=== PATIENT | female | born 1950 | race Caucasian/White ===

== ENCOUNTER → 2022-05-21 11:18 | Outpatient (CLI) | payer MEDICARE, OTHER, SELFPAY ==
--- NOTE | ~2022-05-21 | MM_ITS ---
EXAMINATION: MM screening toni BI w annette HISTORY: Screening mammogram TECHNIQUE: Craniocaudal and mediolateral oblique 3-D tomosynthesis images were obtained and synthetic 2-D images were generated. CAD analysis was submitted and interpreted. COMPARISON: 08/29/2018, 08/18/2016 bilateral screening mammogram examinations BREAST PARENCHYMAL COMPOSITION: There are scattered areas of fibroglandular density. FINDINGS: There is no evidence of suspicious mass, calcification, or architectural distortion to sugg est malignancy in either breast. There has been no suspicious interval change. IMPRESSION: 1. No mammographic evidence of malignancy. 2. Recommend routine screening mammography in one year. BI-RADS Category 1: Negative Reviewed, dictated and finalized at location A. ANALYST
== END ==
PROVIDERS: PCP Physician Assistant; Visit Provider Family Medicine
DX: Z12.31 Encounter for screening mammogram for malignant neoplasm of breast (principal)
CPT/HCPCS: 77063; 77067

== ENCOUNTER 2022-06-10 01:39 | Day surgery (SDC) | payer MEDICARE, OTHER, SELFPAY ==
[2022-05-29 11:02] VITALS: BMI 21.0
--- NOTE | 2022-06-09 13:54 | P.HP_ITS ---
History of Present Illness History of Present Illness Consent: Risks, benefits, and alternatives have been discussed and questions answered. Patient agrees to proceed with procedure. Chief complaint: Neoplasm Scrrening Narrative: Tae Craig is a 71 year old female who was referred for colon cancer screening. Review of Systems Review of Systems: She has had some issues with constipation for which she has use Senokot another natural type laxatives. I had encouraged her to use high- fiber diet. All systems reviewed & are unremarkable except as noted in HPI and below PMFSH Family History Family History Father Family history of malignant neoplasm of stomach Mother Family history of malignant neoplasm of breast in first degree relative Other Family history of malignant neoplasm of uterus Social History Social History Smoking status: Former smoker Alcohol intake: current Alcohol use details: wine occasionally Substance use: never Substance use type: does not use Living arrangements: with family Additional living arrangements comments: Gender identity (if verbalized by the patient): Female Sexual Orientation (if Verbalized by the Patient): Straight or Heterosexual Spiritual care concerns: No Meds Home Medications and Allergies Home Medications Medication Instructions Recorded Confirmed Type multivitamin 1 tablet PO DAILY 03/27/21 06/10/22 History melatonin 5 mg capsule 5 mg PO HS 12/02/21 06/10/22 History sennosides 8.6 mg tablet (Senokot) 8.6 mg PO DAILY 12/02/21 06/10/22 History Allergies Allergy/AdvReac Type Severity Reaction Status Date / Time penicillin G Allergy Unknown Unknown Verified 06/10/22 11:01 Penicillins Allergy Unknown Unknown Verified 06/10/22 11:01 Exam Resp: Auscultation: clear to auscultation bilaterally Cardio: Rate: regular rate Rhythm: regular rhythm GI: GI Palp: Yes Soft to palpation and No Tenderness to palpation present (GI) Assessment and Plan Assessment and plan (1) Encounter for screening colonoscopy: Code(s): Z12.11 - Encounter for screening for malignant neoplasm of colon Status: Acute Assessment and Plan: Colonoscopy with possible biopsy or polypectomy or cautery or injection of substances.
[2022-06-10 11:02] VITALS: BP 107/65; PULSE 68; RESP 18; TEMP 36.6; O2SAT 100
[2022-06-10] MEDS: LACTATED RINGERS 1,000 ML 150 ML IV CONT (11:08)
--- NOTE | 2022-06-10 11:58 | P.PNAN_ITS ---
Anes - Initial Pre Proc Eval Procedure: Operation Date: 06/10/22 12:30 Proposed Procedures p Screening Colonoscopy - Corky Gould MD Date/Time: 06/10/22 11:58 Surgeon: Corky Gould MD Pre Op Diagnosis: Neoplasm Scrrening Patient Data Age: 71 Gender: F Height: 1.57 m Weight: 51.3 kg Last Vital Signs Temp 36.6 C 06/10/22 11:02 Pulse 68 06/10/22 11:02 Resp 18 06/10/22 11:02 BP 107/65 06/10/22 11:02 Pulse Ox 100 06/10/22 11:02 O2 Del Method Room Air 06/10/22 11:02 Allergies Allergy/AdvReac Type Severity Reaction Status Date / Time penicillin G Allergy Unknown Unknown Verified 06/10/22 11:01 Penicillins Allergy Unknown Unknown Verified 06/10/22 11:01 Home Medications Medication Instructions Recorded Confirmed Type multivitamin 1 tablet PO DAILY 03/27/21 06/10/22 History melatonin 5 mg capsule 5 mg PO HS 12/02/21 06/10/22 History sennosides 8.6 mg tablet (Senokot) 8.6 mg PO DAILY 12/02/21 06/10/22 History Patient hx anesthesia problems: none Family hx anesthesia problems: none Results Review: All pre-operative results and documents have been reviewed as part of the pre- operative evaluation. [facility] Family History Family History Father Family history of malignant neoplasm of stomach Mother Family history of malignant neoplasm of breast in first degree relative Other Family history of malignant neoplasm of uterus Social History Social History Smoking status: Former smoker Alcohol intake: current Alcohol use details: wine occasionally Substance use: never Substance use type: does not use Living arrangements: with family Additional living arrangements comments: Gender identity (if verbalized by the patient): Female Sexual Orientation (if Verbalized by the Patient): Straight or Heterosexual Spiritual care concerns: No Anes - Eval Final PreProcedure Day of Procedure 06/10/22 11:58 Patient weight: normal Heart: regular rate and rhythm Lungs: clear to auscultation and normal air movement Airway: Mallampati scale class 1 Neurological: alert and oriented Last oral intake: >/= 8 hours ASA classification: II Emergent: no Anesthetic plan: proceed Anesthesia type and monitoring: general GIVS Results Review: All pre-operative results and documents have been reviewed as part of the pre- operative evaluation. Informed Consent: The patient's anesthetic plan and its attendant risks and benefits were discussed with the patient/family/POA. Questions were solicited and answers provided to the satisfaction of the patient/family/POA.
[2022-06-10 12:54] VITALS: BP 103/62; PULSE 67; RESP 24; O2SAT 100
[2022-06-10 13:04] VITALS: BP 121/66; PULSE 64; RESP 19; O2SAT 100
[2022-06-10 13:14] VITALS: BP 118/74; PULSE 61; RESP 18; O2SAT 100
== END 2022-06-10 13:24 | disposition home or self-care (01) ==
PROVIDERS: PCP Physician Assistant; Visit Provider Internal Medicine Gastroenterology
PROC: 0DJD8ZZ Inspection of Lower Intestinal Tract, Via Natural or Artificial Opening Endoscopic (ICD-10-PCS; CPT 45378; principal; 2022-06-10 12:30)
DX: Z12.11 Encounter for screening for malignant neoplasm of colon (principal); D12.5 Benign neoplasm of sigmoid colon; D12.0 Benign neoplasm of cecum; K63.89 Other specified diseases of intestine; Z87.891 Personal history of nicotine dependence
CPT/HCPCS: 45380; 45385; 88305; J2704; J7120

== ENCOUNTER 2022-07-22 19:37 | Emergency (ER) | payer MEDICARE, OTHER, SELFPAY ==
[2022-07-22] VITALS (23 sets, daily range): BP systolic 83–151; BP diastolic 63–123; PULSE 58; RESP 16; TEMP 36.6; O2SAT 97–100
--- NOTE | ~2022-07-22 | CT_ITS ---
EXAMINATION: CT lumbar spine wo con DATE: 07/22/2022 20:52 INDICATION: lumbar radiculopathy, back pain . TECHNIQUE: Computed tomography (CT) of the lumbar spine was performed without intravenous contrast. A utomated exposure control and iterative reconstruction technique were employed. The dose-length produ ct was 229.07 mGy-cm. COMPARISON: None. FINDINGS: 5 nonrib-bearing lumbar-type vertebral bodies. Pedicles intact. Normal vertebral body align ment. Vertebral body heights preserved. Multilevel mild disc space narrowing. Multilevel mild facet a rthropathy. L3 vertebral body hemangioma. No severe central canal or neural foraminal narrowing IMPRESSION: No acute fracture or traumatic malalignment in the lumbar spine. Reviewed, dictated and finalized at location K. [employer] NARCOTICS AND VICE
[2022-07-22] MEDS: HYDROcodone/acetaminophen (*CRX) 5-325 MG TABLET 1 TAB PO (22:05)
[2022-07-22] MEDS: diazePAM INJ (*CRX) 10 MG/2 ML SYRINGE 2.5 MG IV PUSH (22:06)
--- NOTE | 2022-07-22 22:11 | ED.BACK ---
HPI - Back Pain/Injury General Chief Complaint: Back Pain/Injury Stated Complaint: R BACK PAIN; DX SCIATICA @ [facility] Time Seen by Provider: 07/22/22 19:50 History of Present Illness HPI Narrative: 71-year-old female presenting with low back pain on the right side that radiates down to her leg, started about 10 days ago, pain seems to come in waves, she had already been to an urgent care where they had got an x-ray and diagnosed with likely sciatica and sent her home with muscle relaxants and NSAIDs, however she has not been feeling any better, she was also then be started on steroids with first dose today. No focal numbness or weakness anywhere, no difficulty ambulating, seems to be worse when she is laying flat in certain positions, no dysuria or hematuria. She has had kidney stones in the past but this does not feel like it. Related Data Home Medications Medication Instructions Recorded Confirmed multivitamin 1 tablet PO DAILY 03/27/21 06/10/22 melatonin 5 mg capsule 5 mg PO HS 12/02/21 06/10/22 sennosides 8.6 mg tablet (Senokot) 8.6 mg PO DAILY 12/02/21 06/10/22 Allergies Allergy/AdvReac Type Severity Reaction Status Date / Time penicillin G Allergy Unknown Unknown Verified 07/22/22 19:44 Penicillins Allergy Unknown Unknown Verified 07/22/22 19:44 Review of Systems Review of Systems: CONST: No fever. HEENT: No sore throat C/V: No chest pain RESP: No cough GI: no abdominal pain : No dysuria. M/S: Low back pain SKIN: No rash. NEURO: [No headache or focal numbness or weakness] PSYCH: [No depression] [facility] Family History Family History Father Family history of malignant neoplasm of stomach Mother Family history of malignant neoplasm of breast in first degree relative Other Family history of malignant neoplasm of uterus Social History Social History Smoking status: Former smoker Alcohol intake: current Alcohol use details: wine occasionally Substance use: never Substance use type: does not use Additional living arrangements comments: Gender identity (if verbalized by the patient): Female Sexual Orientation (if Verbalized by the Patient): Straight or Heterosexual Spiritual care concerns: No Exam Narrative: EXAMINATION OF ORGAN SYSTEMS/BODY AREAS: Constitutional: Vital signs per nursing GENERAL: Appears uncomfortable HEAD: Normal with no signs of head trauma. EYES: EOMI, conjunctiva normal ENT: Hearing grossly intact LUNGS: Nonlabored breathing. HEART: [Regular rate and rhythm] ABD: [Soft], [nontender to palpation] EXT: Normal range of motion SKIN: [No rashes or lesions.] NEURO: [Alert and oriented x 3. No gross focal sensory or strength deficits.] Able to stand and ambulate with normal steady gait PSYCH: Normal affect Course Vital Signs Vital signs: Vital Signs Pulse Oximetry 100 07/22/22 19:43 Temperature 97.8 F 07/22/22 19:44 Pulse Rate 58 L 07/22/22 23:31 Respiratory Rate 16 07/22/22 19:44 Blood Pressure 129/69 07/22/22 23:31 Pulse Oximetry 100 07/22/22 23:32 Oxygen Delivery Room Air 07/22/22 19:44 MDM - Back Pain/Injury MDM Narrative Medical decision making narrative: ED COURSE AND MEDICAL DECISION MAKIN-year-old with acute back pain. Normal motor and sensory exam. Patient able to ambulate. No evidence of acute cord compression, osteomyelitis/discitis or cauda equina without saddle anesthesia, urinary retention/incontinence, numbness/tingling in lower extremities, fever, history of IV drug use, cancer or immunosuppression. Doubt AAA or aortic dissection without severe pain/discomfort or any neurovascular deficits. [[place] 5mg and diazepam 2.5mg] given for symptomatic relief. CT L spine ordered given her age. This does not show any acute fracture or severe stenosis. On reevaluation, the symptoms are improved. Patient is able to
== END 2022-07-22 23:57 | disposition home or self-care (01) ==
PROVIDERS: Emergency Provider Emergency Medicine; PCP Physician Assistant
DX: M54.50 Low back pain, unspecified (principal); Z87.891 Personal history of nicotine dependence
CPT/HCPCS: 72131; 96374; 99284; A9270; J3360

== ENCOUNTER → 2022-07-27 15:02 | Outpatient (CLI) | payer MEDICARE, OTHER, SELFPAY ==
--- NOTE | ~2022-07-27 | XR_ITS ---
XR hip RT min 3V w AP pelvis DATE: 07/27/2022 15:16 INDICATION: Right hip pain. No injury. TECHNIQUE: AP pelvis. AP and lateral views of the right hip COMPARISON: None FINDINGS: Normal alignment at the pubic symphysis and sacroiliac joints. No pelvic fracture or bone d estruction. Hip joint spaces are symmetric and well preserved. No fracture, dislocation, avascular ne crosis or bone destruction of the right hip. IMPRESSION: No significant abnormality Reviewed, dictated and finalized at location B. GING PLUG PLACER IMPRESSION: No significant abnormality
== END ==
PROVIDERS: PCP Physician Assistant; Visit Provider Physician Assistant
DX: M25.551 Pain in right hip (principal)
CPT/HCPCS: 73502

== ENCOUNTER → 2022-07-30 12:40 | Outpatient (CLI) | payer MEDICARE, OTHER, SELFPAY ==
--- NOTE | ~2022-07-30 | MR_ITS ---
EXAMINATION: MR lumbar spine wo con DATE: 07/30/2022 13:36 INDICATION: Lumbar radiculopathy. TECHNIQUE: Magnetic resonance imaging (MRI) of the lumbar spine was performed without intravenous con trast. Sequences included sagittal T2-weighted FSE, sagittal T2-weighted FS FSE, sagittal T1-weighted FSE, and axial T2-weighted FSE. COMPARISON: CT lumbar spine 07/22/22 FINDINGS: There is 3 degrees levocurvature of lumbar spine. There is mild chronic anterior wedging of T12 and L1 vertebral bodies, likely physiologic. Intervertebral disc heights are normal. The distal spinal cord signal intensity is normal. The conus medullaris is at T12-L1. The following disc levels are specifically discussed: L1-L2: The disc does not extend beyond the endplate margin. There is mild right facet joint osteoarth ritis. There is no neural foraminal stenosis. There is no central canal stenosis. L2-L3: The disc does not extend beyond the endplate margin. There is mild left facet joint osteoarthr itis. There is no neural foraminal stenosis. There is no central canal stenosis. L3-L4: The disc is bulging. There is moderate right and mild left facet joint osteoarthritis. There i s mild bilateral neural foraminal stenosis. There is no central canal stenosis. L4-L5: The disc is bulging and has an annular fissure. There is mild right and severe left facet join t osteoarthritis. There is mild bilateral neural foraminal stenosis. There is mild central canal sten osis. L5-S1: The disc does not extend beyond the endplate margin. There is mild bilateral facet joint osteo arthritis. There is no neural foraminal stenosis. There is no central canal stenosis. IMPRESSION: 1. Mild lumbar spondylosis. Reviewed, dictated and finalized at location A. OPERATOR IMPRESSION: 1. Mild lumbar spondylosis.
== END ==
PROVIDERS: PCP Physician Assistant; Visit Provider Physician Assistant
DX: M47.26 Other spondylosis with radiculopathy, lumbar region (principal); M25.551 Pain in right hip
CPT/HCPCS: 72148

== ENCOUNTER → 2022-08-28 09:39 | Outpatient (CLI) | payer MEDICARE, OTHER, SELFPAY ==
--- NOTE | ~2022-08-28 | CT_ITS ---
EXAMINATION: CT abdomen pelvis wo con DATE: 08/28/2022 09:56 INDICATION: Right lower quadrant mass TECHNIQUE: Computed tomography (CT) of the abdomen and pelvis was performed without intravenous contr ast. The dose-length product (DLP) was 321.57 mGy-cm. Automated exposure control and iterative recons truction technique were employed. COMPARISON: None FINDINGS: Minimal dependent atelectasis is present in the lung bases. The heart size is normal. There is a trace pericardial effusion. There are at least seven soft tissue density masses of the liver wh ich measure up to 3.5 cm in the right hepatic lobe. One subcapsular mass of the left hepatic lobe dem onstrates adjacent capsular retraction. The spleen, pancreas, gallbladder, and adrenal glands are nor mal. The kidneys are unremarkable. A moderate volume of colonic stool is present. There are bilateral inguinal hernias containing fat. There is mild lumbar spondylosis. No pathologically enlarged abdom inal or pelvic lymph nodes are identified. No free intraperitoneal gas or evidence of bowel obstructi on. IMPRESSION: 1. Liver masses which may be benign or malignant. Further evaluation by MRI without and with contrast is recommended. Reviewed, dictated and finalized at location B. ETING OPERATIONS MANAGER IMPRESSION: 1. Liver masses which may be benign or malignant. Further evaluation by MRI wit hout and with contrast is recommended.
== END ==
PROVIDERS: PCP Physician Assistant; Visit Provider Internal Medicine Gastroenterology
DX: R16.0 Hepatomegaly, not elsewhere classified (principal)
CPT/HCPCS: 74176

== ENCOUNTER → 2022-09-10 08:55 | Outpatient (CLI) | payer MEDICARE, OTHER, SELFPAY ==
--- NOTE | ~2022-09-10 | MR_ITS ---
EXAMINATION: MR abdomen wo/w con DATE: 09/10/2022 10:47 INDICATION: Liver disease, unspecified. TECHNIQUE: Magnetic resonance imaging (MRI) of the abdomen was performed without and with 10 mL Multi Gabriele intravenous contrast. COMPARISON: CT abdomen and pelvis 08/28/2022 FINDINGS: There are approximately 6 masses in the liver that demonstrate delayed hyperenhancement. The larger m asses demonstrate early peripheral interrupted puddling of contrast. The largest mass measures 3.2 cm in right hepatic lobe. These findings are consistent with hemangiomas. The gallbladder, spleen, panc reas, and adrenal glands are normal. There are cysts in the kidneys measuring up to 7 mm in the left. There are no dilated loops of bowel. There are no pathologically enlarged lymph nodes. There is no f ree intraperitoneal fluid. There is a hemangioma in L3 vertebral body. IMPRESSION: 1. Multiple hemangiomas in the liver correlating with the CT abnormality. Reviewed, dictated and finalized at location A. UCTION LINE SOLDERER
== END ==
PROVIDERS: PCP Physician Assistant; Visit Provider Internal Medicine Gastroenterology
DX: D18.09 Hemangioma of other sites (principal)
CPT/HCPCS: 74183; A9577

== ENCOUNTER 2022-10-15 12:48 | Outpatient (CLI) | payer MEDICARE, OTHER, SELFPAY | END 2022-10-15 12:49 | disposition home or self-care (01) | LOC: ANHSURGERY 12:53 | PROVIDERS: PCP Physician Assistant; Visit Provider Surgery | DX: Z01.812 Encounter for preprocedural laboratory examination (principal); K40.20 Bilateral inguinal hernia, without obstruction or gangrene, not specified as recurrent | CPT/HCPCS: 36415; 86850; 86900; 86901 ==

== ENCOUNTER 2022-10-20 00:21 | Day surgery (SDC) | payer MEDICARE, OTHER, SELFPAY ==
--- NOTE | 2022-10-14 11:24 | PC.NURSE ---
Report to the Outpatient Waiting Room, entrance under the green pavilion located off [facility], at time __1000 on date __10/20/22 . Planned Procedure Time: __1200 . Time changes happen often and if your time is changed the preop area will call you the afternoon before. - You and your visitor will be asked to self-screen and do not enter if you have any COVID symptoms. - Only one visitor is requested with a max of two and NO children visitors are allowed at this time. - The patient visitor may be requested to leave or wait in car when not with patient due to distancing restrictions. - A mask is optional within the hospital at this time. Patients may have clear liquids (water, carbonated beverages, clear teas, apple juice) until 3 hours prior to surgery with a maximum of 20 ounces. - No food from midnight until time of surgery - Infants may have breast milk until 4 hours before surgery, formula 6 hours prior to surgery. - Children will be allowed to drink immediately following surgery. If applicable, please bring a bottle or sippy cup to assist with drinking. Juice, water, soda, and popsicles are readily available. For infants on formula, please bring formula the day of surgery. Pacifiers are allowed. Take the following medications with a SIP of water the morning of surgery: ____NONE DO NOT STOP ANY OF YOUR OTHER PRESCRIPTION MEDICATIONS PRIOR TO SURGERY ?EXCEPT THE FOLLOWING Medications to discontinue per physician ALL VITAMINS/SUPPLEMENTS 3 DAYS PRE OP.LAST DOSE 10/16/22 HIBICLENS SHOWER MORNING OF SURGERY Please no make-up, nail nepali, hairspray, perfume, deodorant, or body powder the day of surgery. No jewelry (including any body piercings) or valuables the day of surgery, leave them at home. Please take a shower or bath the night before, or the morning of, surgery with an antibacterial soap. Wear comfortable, loose fitting clothing. Children are encouraged to wear pajamas. - Jewelry must be removed prior to entering the operating room. Rings and piercings that are not removed may be cut off. - The hospital will not accept responsibility for valuables. - Please leave all valuables, including medications, at home the day of surgery. If you are going home after surgery, a licensed scoop driver must drive you home. - NO public transportation without another adult if you receive anesthesia. - We recommend that an adult stay with you for 24 hours following discharge. - We also recommend that you do not drive, make important decision, drink alcoholic beverages, or take any drugs that were not prescribed by your health care provider for at least 24 hours after your discharge time. For Pediatric surgeries, we recommend two adults accompany the child home. Follow any additional instructions given to you from your surgeon. If you or anyone in your household have experienced Covid symptoms in the past week, please notify your surgeon or the nurse liaison at the phone number below for possible testing. Telephone instructions given to ___PATIENT and asked if any additional questions and then verbalized understanding. Patient advised to call surgeon office or pre surgery nurse liaison [phone] if any additional questions.
[2022-10-14 11:31] VITALS: BMI 21.0
[2022-10-20] VITALS (17 sets, daily range): BP systolic 100–143; BP diastolic 35–75; PULSE 48–76; RESP 12–16; TEMP 36.6–37.1; O2SAT 94–100
[2022-10-20] MEDS: ACETAMINOPHEN 500 MG TABLET 1000 MG PO (10:00)
[2022-10-20] MEDS: LACTATED RINGERS 1,000 ML 30 ML IV CONT ×4 (10:10→17:49)
--- NOTE | 2022-10-20 10:44 | WPDHPUPDATE1 ---
History and Physical Update Update Date/Time: 10/20/22 10:44 History and Physical has been reviewed, including an updated exam of the patient. There are NO changes in the patient's condition. Risks, benefits, and alternatives have been discussed and questions answered. Patient agrees to proceed with procedure.
--- NOTE | 2022-10-20 10:44 | PM.IMHP ---
H&P: HPI History of Present Illness Date/Time: 10/20/22 10:44 Chief Complaint: Bilateral inguinal hernia Narrative: This is a 71-year-old woman who presents for bilateral inguinal hernia repair. She reports no changes since last seen in the office. Review of Systems Review of Systems: All systems reviewed & are unremarkable except as noted in HPI and below Constitutional: Constitutional: Denies chills, Denies fever(s), Denies headache(s) and Denies weight loss Eyes: Eyes: Denies change in vision ENT: Denies dizziness, Denies headache(s), Denies neck mass and Denies throat swelling Cardiovascular: Cardiovascular: Denies chest pain, Denies lightheadedness and Denies dyspnea Respiratory: Respiratory: Denies cough, Denies dyspnea and Denies wheezing Gastrointestinal: Gastrointestinal: Denies abdominal pain, Denies change in bowel habits, Denies nausea and Denies vomiting Genitourinary: Genitourinary: Denies hematuria and Denies dysuria Musculoskeletal: Musculoskeletal: Reports as per HPI Integumentary/Breasts: Skin/Breast: Reports as per HPI Neurologic: Denies dizziness and Denies headache(s) Allergic/Immunologic: Allergic/Immunologic: Denies throat swelling and Denies wheezing PMFSH Past Medical History Medical History History of kidney stones Surgical History Surgical History History of appendectomy History of removal of cyst excision of breast cyst Family History Family History Father Family history of malignant neoplasm of stomach Mother Family history of malignant neoplasm of breast in first degree relative Other Family history of malignant neoplasm of uterus Social History Social History Smoking status: Never smoker Tobacco type: cigarettes Alcohol intake: current Drinks per week: 5 Alcohol use details: wine occasionally Substance use: never Substance use type: does not use Living arrangements: with family Additional living arrangements comments: Occupation/Education: retired Gender identity (if verbalized by the patient): Female Sexual Orientation (if Verbalized by the Patient): Straight or Heterosexual Spiritual care concerns: No Meds Home Medications and Allergies Home Medications Medication Instructions Recorded Confirmed Type multivitamin 1 tablet PO DAILY 03/27/21 10/20/22 History melatonin 5 mg capsule 5 mg PO HS 12/02/21 10/20/22 History sennosides 8.6 mg tablet (Senokot) 8.6 mg PO PRN PRN Constipation 12/02/21 10/20/22 History cyanocobalamin (vitamin B-12) 1,000 mcg PO DAILY 10/14/22 10/20/22 History 1,000 mcg tablet Allergies Allergy/AdvReac Type Severity Reaction Status Date / Time Penicillins Allergy Severe Hives Verified 10/20/22 09:50 hydrocodone [From Vicodin] AdvReac Hallucinati Verified 10/20/22 09:50 ng Vital Signs Vital Signs - 24 hr 10/20/22 10:15 Temperature 37.1 C Pulse Rate 74 Respiratory Rate 16 Blood Pressure 109/63 Pulse Oximetry 99 Oxygen Delivery Room Air Exam Const: General: no acute distress and alert Orientation/consciousness: patient oriented x3 HENMT: Head: normocephalic and atraumatic Ears: hearing grossly normal bilaterally Face/Nose/Sinus: Normal nares present Mouth: Yes Normal oral and palatal mucosa present Eyes: Periorbital: periorbital findings normal Sclera: sclerae normal EOM: EOMs intact bilaterally Neck: Neck: normal visual inspection, no lymphadenopathy and trachea midline Chest: Chest palpation & inspection: normal inspection of the chest Resp: Effort & Inspection: normal respiratory effort Auscultation: clear to auscultation bilaterally Cardio: Jugular venous distension: no JVD Rate: regular rate Rhythm: regular rhythm Heart
[2022-10-20] MEDS: KETOROLAC 15 MG/ML VIAL (*BKC) IV PUSH ×2 (10:50→18:08)
--- NOTE | 2022-10-20 10:52 | WPDANESEPPF ---
Anes - Initial Pre Proc Eval Procedure: Operation Date: 10/20/22 12:00 Proposed Procedures p Laparoscopic Bilateral Inguinal Hernia Repair with Mesh, Davinci Assisted - Nabil Chen DO Date/Time: 10/20/22 10:52 Surgeon: Nabil Chen DO Pre Op Diagnosis: Bilateral Inguinal Hernia Patient Data Age: 71 Gender: F Height: 1.57 m Weight: 50.3 kg Last Vital Signs Temp 37.1 C 10/20/22 10:15 Pulse 74 10/20/22 10:15 Resp 16 10/20/22 10:15 BP 109/63 10/20/22 10:15 Pulse Ox 99 10/20/22 10:15 O2 Del Method Room Air 10/20/22 10:15 Allergies Allergy/AdvReac Type Severity Reaction Status Date / Time Penicillins Allergy Severe Hives Verified 10/20/22 09:50 hydrocodone [From Vicodin] AdvReac Hallucinati Verified 10/20/22 09:50 ng Home Medications Medication Instructions Recorded Confirmed Type multivitamin 1 tablet PO DAILY 03/27/21 10/20/22 History melatonin 5 mg capsule 5 mg PO HS 12/02/21 10/20/22 History sennosides 8.6 mg tablet (Senokot) 8.6 mg PO PRN PRN Constipation 12/02/21 10/20/22 History cyanocobalamin (vitamin B-12) 1,000 mcg PO DAILY 10/14/22 10/20/22 History 1,000 mcg tablet Patient hx anesthesia problems: none Family hx anesthesia problems: none Results Review: All pre-operative results and documents have been reviewed as part of the pre-operative evaluation. [facility] Past Medical History Medical History History of kidney stones Surgical History Surgical History History of appendectomy History of removal of cyst excision of breast cyst Family History Family History Father Family history of malignant neoplasm of stomach Mother Family history of malignant neoplasm of breast in first degree relative Other Family history of malignant neoplasm of uterus Social History Social History Smoking status: Never smoker Tobacco type: cigarettes Alcohol intake: current Drinks per week: 5 Alcohol use details: wine occasionally Substance use: never Substance use type: does not use Living arrangements: with family Additional living arrangements comments: Occupation/Education: retired Gender identity (if verbalized by the patient): Female Sexual Orientation (if Verbalized by the Patient): Straight or Heterosexual Spiritual care concerns: No Anes - Eval Final PreProcedure Day of Procedure 10/20/22 10:52 Patient weight: normal Heart: regular rate and rhythm Lungs: clear to auscultation Airway: Mallampati scale class 1 Neurological: alert and oriented Last oral intake: >/= 8 hours ASA classification: II Emergent: no Anesthetic plan: proceed Anesthesia type and monitoring: general ETT and standard monitoring Results Review: All pre-operative results and documents have been reviewed as part of the pre-operative evaluation. Informed Consent: The patient's anesthetic plan and its attendant risks and benefits were discussed with the patient/family/POA. Questions were solicited and answers provided to the satisfaction of the patient/family/POA.
[2022-10-20] MEDS: ceFAZolin 2 GM/D5W 50 ML 2 GM/50 ML BAG IVPB (11:11)
[2022-10-20] MEDS: BUPIVACAINE/EPINEPHRINE 0.5% 50 ML VIAL 30 ML INFILTRATE (11:48)
--- NOTE | 2022-10-20 12:33 | W.PM.PROC2 ---
Procedure Note - Detailed Date of Procedure 10/20/22 Pre-op Diagnosis Bilateral Inguinal Hernia Post-op Diagnosis Same (Indirect right inguinal hernia, direct left inguinal hernia) Procedure Performed Laparoscopic bilateral inguinal hernia repair with mesh, da Gage assisted Surgeon Nabil Chen, DO Anesthesia General and Local (0.5% bupivacaine with epinephrine) Indications This is a 71-year-old woman who presented with bilateral inguinal hernias. She began experiencing some right-sided abdominal and groin pain that started about 2 months ago. She was also experiencing back pain and had further workup which showed evidence of herniated disc. A CT of her abdomen and pelvis had been performed which showed bilateral fat containing inguinal hernias. She did have some occasional discomfort in noticed a bulge also in the left groin. She was found to have evidence of bilateral inguinal hernias on exam. Discussions were made with the patient about treatment options and decision was made to proceed with robotic assisted laparoscopic bilateral inguinal hernia repair with mesh. Findings Laparoscopic bilateral inguinal hernia repair was performed. The patient was found to have a moderate-sized indirect right inguinal hernia and a small direct left inguinal hernia. Robotic transabdominal preperitoneal approach was utilized for repair. Once the peritoneum and hernia sac was dissected far enough posteriorly, I then placed large 3DMax mid mesh overlying each myopectineal orifice. No specimens were obtained for pathology. Description of Procedure Procedure as well as risks, benefits, and alternatives were discussed with the patient. Written consent was obtained and placed in chart prior to procedure. Patient was brought back to surgical suite. She was placed supine on operating table. Time-out was done to confirm patient and procedure. She was then intubated by Anesthesia Department. Her abdomen was prepped and draped in sterile fashion using chlorhexidine prep. 0.5% bupivacaine with epinephrine was infiltrated at each location for incision. A 12 millimeter transverse incision was made just superior to the umbilicus using a 15 blade scalpel. Blunt dissection was carried out down to the linea alba. A vertical incision was made at the linea alba using a 15 blade scalpel. The peritoneum was then bluntly entered. A 12 millimeter trocar was inserted and carbon dioxide insufflation was used to create a pneumoperitoneum. A camera was inserted and the abdominal cavity was inspected. The patient was placed in slight Trendelenburg position. An 8 millimeter incision was made on the right lateral abdomen and an 8 millimeter trocar was inserted under direct visualization. Another 8 millimeter incision was made in the left lateral abdomen and an 8 millimeter trocar was inserted under direct visualization. The robotic arms were brought up to the patient's bedside and secured to the ports. The camera and instruments were inserted. I then moved over to the robotic console and took control of the camera and instruments. After careful inspection of the abdominal cavity, I began scoring the peritoneum along the right lower quadrant using scissors with electrocautery. The preperitoneal plane was entered and this was carefully dissected caudally along the inferior epigastric vessels. Careful dissection with scissors with electrocautery and blunt dissection was used to continue this dissection. I dissected far enough laterally to allow for mesh placement, and also dissected medially to identify the pubic arch and Robles's ligament. The hernia sac was identified and carefully dissected posteriorly. The round ligament was also identified and the peritoneum was carefully dissected far enough posteriorly to allow for mesh placement. Once an adequate pocket was created, I then placed the mesh within the preperitoneal pocket and carefully unfolded it. The mesh was centered on the h
[2022-10-20] MEDS: fentaNYL CITRATE INJ (*CRX) 100 MCG/2 ML VIAL 25 MCG IV PUSH ×5 (13:17→19:09)
[2022-10-20] MEDS: oxyCODONE HCL (*CRX) 5 MG TAB IR PO (14:15)
--- NOTE | 2022-10-20 17:20 | SUR.PHASEII ---
BLADDER SCAN SHOWED 38 ML URINE; PATIENT HAS BEEN DRINKING LOTS OF FLUIDS; 3RD BAG OF LR ALMOST COMPLETED. WILL NOTIFY DR. ARELLANO.
--- NOTE | 2022-10-20 17:51 | SUR.PHASEII ---
173 DR. ARELLANO CALLED RE: PATIENT MINIMAL URINE IN BLADDER SCAN. DR. ARELLANO OKAY'D TO GIVE PATIENT 4TH LITER OF LR AND TO WATCH FOR ANOTHER HOUR AND TO CALL HIM AGAIN IF NO UOP IN ONE HOUR. SOUP AND PUDDING ORDERED FOR PATIENT.
--- NOTE | 2022-10-20 18:26 | SUR.PHASEII ---
PATIENT EATING DINNER.
--- NOTE | 2022-10-20 19:59 | SUR.PHASEI ---
pt was discharged with pain controlled. dr arzate is sending pain meds to [facility] in [place], 24 hr pharmacy, and daughter smita is going to pick them up tonight after 2100.
--- NOTE | 2022-10-20 20:11 | SUR.PHASEII ---
pt was able to urinate at 1930.
== END 2022-10-20 20:00 | disposition home or self-care (01) ==
PROVIDERS: PCP Physician Assistant; Visit Provider Surgery
PROC: 8E0Y4CZ Robotic Assisted Procedure of Lower Extremity, Percutaneous Endoscopic Approach (ICD-10-PCS; CPT 49650; principal; 2022-10-20 12:00)
DX: K40.20 Bilateral inguinal hernia, without obstruction or gangrene, not specified as recurrent (principal)
CPT/HCPCS: 49650; S2900; A9270; C1781; J0131; J0690; J1100; J1885; J2250; J2405; J2704; J2710; J3010; J7120